=== PATIENT | male | born 1975 | race Two or more races ===

== ENCOUNTER 2022-07-29 04:14 | Emergency (ER) | payer MEDICARE, MEDICAID ==
[~2022-07-29] VITALS: Ht 175.3 cm; Wt 125.0 kg
[2022-07-29 04:33] VITALS: BP 172/81
== END 2022-07-29 08:56 | disposition left against medical advice (07) ==
LOC: EDBD 04:14 → ER 04:24
DX: R07.9 Chest pain, unspecified (principal); Z53.21 Procedure and treatment not carried out due to patient leaving prior to being seen by health care provider
CPT/HCPCS: 93005

== ENCOUNTER 2022-11-14 13:45 | Inpatient (IN) | payer MEDICARE, MEDICAID ==
[~2022-11-14] VITALS: Ht 182.9 cm; Wt 116.1 kg
[2022-11-14 14:55] LABS: Basophils # (auto) 0.1 10 ^3/uL (0-0.2); Basophils % (auto) 1.1 % (0.0-2.0); Eosinophils # (auto) 0.2 10 ^3/uL (0-0.8); Eosinophils % (auto) 2.3 % (0.0-7.0); Hematocrit 33.8 % (41.0-53.0); Hemoglobin 11.3 g/dL (13.5-17.5); Lymphocytes # (auto) 0.8 10 ^3/uL (0.4-5.4); Mean Corpuscular Hemoglobin 32.5 pg (28.0-32.0); Mean Corpuscular Hgb Conc. 33.5 g/dL (32.0-36.0); Mean Corpuscular Volume 97.1 fL (80.0-100.0); Monocytes # (auto) 0.6 10 ^3/uL (0-1.3); Monocytes % (auto) 5.8 % (0.0-12.0); Neutrophils # (auto) 9.2 10 ^3/uL (1.6-8.6); Neutrophils % (auto) 83.8 % (37.0-80.0); Red Blood Cells 3.49 10^6/uL (4.5-5.90); Red Cell Distribution Width 15.2 % (11.8-14.3); White Blood Cell 10.9 10^3/uL (4.4-10.8)
[2022-11-14 15:13] LABS: Albumin 4.2 g/dL (3.4-5.0); BUN/Creatinine Ratio 6.2; Calcium 9.2 mg/dL (8.5-10.1)
[2022-11-14 15:15] LABS: Bilirubin, Total 0.5 mg/dL (0.2-1.0); Total Protein 7.9 g/dL (6.4-8.2)
[2022-11-14 15:39] LABS: Potassium 7.3 mmol/L (3.5-5.1)
[2022-11-14] MEDS ORDERED: DEXTROSE (50%) 50ML SYRG IV ONE ×2 (15:45→18:45)
[2022-11-14] MEDS ORDERED: SODIUM ZIRCONIUM CYCL 10 GM PAK PO ONE ×2 (15:45→16:45)
[2022-11-14] MEDS ORDERED: ALBUTEROL SULF 2.5 MG/0.5ML(0.5%) NEB SOLN NEB ONE ×2 (15:45→18:45)
[2022-11-14] MEDS ORDERED: InsuLIN REG 1unit/0.01ml Soln (100units/ml) IV ONE ×2 (15:45→18:45)
[2022-11-14] MEDS ORDERED: CALCIUM GLUC 1,000mg/50ml-NS 50 ML IV ONE ×2 (15:45→18:45)
[2022-11-14] MEDS ORDERED: SODIUM BICARBONATE 8.4% INJ 50ML SYRINGE IV ONE ×2 (15:45→18:45)
[2022-11-14] MEDS ORDERED: ASPirin 325 MG TAB PO ONE (16:15)
[2022-11-14] MEDS ORDERED: SODIUM CHL 0.9% 1000 ML BAG XX ONE (16:45)
[2022-11-14] MEDS ORDERED: DOCUSATE SOD 100 MG CAP PO PRN (19:30)
[2022-11-14] MEDS ORDERED: NITROGLYCERIN 0.4 MG SL TAB SL PRN (19:30)
[2022-11-14] MEDS ORDERED: ONDANSETRON HCL 4 MG/2 ML VIAL IV PRN (19:30)
[2022-11-14] MEDS ORDERED: MORPHINE SULFATE INJ 2 MG/ml SYRG IV PRN (19:30)
[2022-11-14] MEDS ORDERED: ACETAMINOPHEN 325 MG TAB PO PRN (19:30)
[2022-11-14] MEDS ORDERED: CLON0.2T PO (19:45)
[2022-11-14] MEDS ORDERED: INSUINJ37 SC (19:45)
[2022-11-14] MEDS ORDERED: CLOP75TA70 PO (19:45)
[2022-11-14] MEDS ORDERED: ATOR40TA52 PO (19:45)
[2022-11-14] MEDS ORDERED: CITA-77 PO (19:45)
[2022-11-14] MEDS ORDERED: CARV25TA55 (19:45)
[2022-11-14] MEDS ORDERED: NIFE1TAB36 (19:45)
[2022-11-14] MEDS ORDERED: ASPI-325 PO (19:45)
[2022-11-14] MEDS ORDERED: DEXTROSE (50%) 50ML SYRG IV PRN (19:45)
[2022-11-14] MEDS ORDERED: SEVE800T (19:45)
[2022-11-14] MEDS ORDERED: diphenhdrAMINE HCL 50 MG/1 ML VL IV ONE (22:45)
[2022-11-14] MEDS: ACCU-CHEK COMFORT CURVE STRIP VI SCH (23:29)
[2022-11-14] MEDS: InsuLIN REG 1unit/0.01ml Soln (100units/ml) SC SCH (23:29)
[2022-11-14] MEDS: NIFEdipine ER 30 MG TAB PO SCH (23:29)
[2022-11-14] MEDS: HEPARIN SODIUM (PORCINE) 5000 UNITS/ML 1ML VIAL IV SCH (23:42)
[2022-11-15] MEDS: cloNIDine HCL 0.1 MG TAB PO PRN ×3 (01:21→23:12)
[2022-11-15 05:00] VITALS: BP 168/86
[2022-11-15] MEDS: diphenhdrAMINE HCL 50 MG/1 ML VL IV PRN ×3 (05:06→18:50)
[2022-11-15 05:27] LABS: Basophils # (auto) 0.1 10 ^3/uL (0-0.2); Basophils % (auto) 0.8 % (0.0-2.0); Eosinophils # (auto) 0.2 10 ^3/uL (0-0.8); Eosinophils % (auto) 3.2 % (0.0-7.0); Hematocrit 29.1 % (41.0-53.0); Hemoglobin 9.8 g/dL (13.5-17.5); Lymphocytes % (auto) 15.7 % (10.0-50.0); Mean Corpuscular Hgb Conc. 33.7 g/dL (32.0-36.0); Monocytes # (auto) 0.8 10 ^3/uL (0-1.3); Monocytes % (auto) 11.7 % (0.0-12.0); Neutrophils # (auto) 4.6 10 ^3/uL (1.6-8.6); Neutrophils % (auto) 68.6 % (37.0-80.0); Red Blood Cells 3.06 10^6/uL (4.5-5.90); Red Cell Distribution Width 15.1 % (11.8-14.3); White Blood Cell 6.7 10^3/uL (4.4-10.8)
[2022-11-15 05:40] LABS: Albumin 3.6 g/dL (3.4-5.0); Calcium 8.9 mg/dL (8.5-10.1); Potassium 4.8 mmol/L (3.5-5.1)
[2022-11-15 05:45] LABS: BUN/Creatinine Ratio 5.5; Bilirubin, Total 0.5 mg/dL (0.2-1.0); Total Protein 7.5 g/dL (6.4-8.2)
[2022-11-15] MEDS: InsuLIN REG 1unit/0.01ml Soln (100units/ml) SC SCH ×4 (06:20→21:42)
[2022-11-15] MEDS: ACCU-CHEK COMFORT CURVE STRIP VI SCH ×4 (06:20→21:42)
[2022-11-15] MEDS: HEPARIN SODIUM (PORCINE) 5000 UNITS/ML 1ML VIAL IV SCH (06:48)
[2022-11-15 09:46] VITALS: BP 131/85
[2022-11-15] MEDS: ATORVASTATIN 20 MG TAB PO SCH (10:04)
[2022-11-15] MEDS: CITALOPRAM HYDROBR 20 MG TAB PO SCH (10:04)
[2022-11-15] MEDS: ASPirin-EC 81 mg tab PO SCH (10:04)
[2022-11-15] MEDS: CLOPIDOGREL BISULFATE 75 MG TAB PO SCH (10:05)
[2022-11-15] MEDS: NIFEdipine ER 30 MG TAB PO SCH ×2 (10:05→21:30)
[2022-11-15] MEDS ORDERED: SODIUM CHL 0.9% 1000 ML BAG XX ONE (13:15)
[2022-11-15] MEDS ORDERED: THROAT LOZENGES(CEPASTAT) MT PRN (14:00)
[2022-11-15] MEDS: CLINDAMYCIN HCL 150 MG CAP PO SCH ×2 (14:45→21:29)
[2022-11-15] MEDS: HYDROcodone-ACET 5/325MG TAB PO PRN ×2 (14:46→21:30)
[2022-11-15 17:20] VITALS: BP 155/94
[2022-11-15] MEDS: PANTOPRAZOLE 40 MG/10 ML VIAL INJ IV SCH (21:31)
[2022-11-15 22:00] VITALS: BP 181/90
[2022-11-16] MEDS: HYDROcodone-ACET 5/325MG TAB PO PRN (01:44)
[2022-11-16] MEDS: diphenhdrAMINE HCL 50 MG/1 ML VL IV PRN (01:44)
[2022-11-16 05:00] VITALS: BP 175/92
[2022-11-16] MEDS: CLINDAMYCIN HCL 150 MG CAP PO SCH ×2 (05:37→13:28)
[2022-11-16 05:54] LABS: Basophils # (auto) 0.1 10 ^3/uL (0-0.2); Basophils % (auto) 1.5 % (0.0-2.0); Eosinophils # (auto) 0.2 10 ^3/uL (0-0.8); Eosinophils % (auto) 3.8 % (0.0-7.0); Hematocrit 29.6 % (41.0-53.0); Hemoglobin 10.2 g/dL (13.5-17.5); Lymphocytes % (auto) 17.8 % (10.0-50.0); Mean Corpuscular Hemoglobin 32.9 pg (28.0-32.0); Mean Corpuscular Hgb Conc. 34.3 g/dL (32.0-36.0); Mean Corpuscular Volume 95.8 fL (80.0-100.0); Monocytes # (auto) 0.9 10 ^3/uL (0-1.3); Monocytes % (auto) 15.3 % (0.0-12.0); Neutrophils # (auto) 3.6 10 ^3/uL (1.6-8.6); Neutrophils % (auto) 61.6 % (37.0-80.0); Nucleated Red Blood Cells % 0.1 %; Red Blood Cells 3.09 10^6/uL (4.5-5.90); Red Cell Distribution Width 14.9 % (11.8-14.3); White Blood Cell 5.8 10^3/uL (4.4-10.8)
[2022-11-16 05:59] LABS: BUN/Creatinine Ratio 4.9; Calcium 8.6 mg/dL (8.5-10.1); Potassium 5.2 mmol/L (3.5-5.1)
[2022-11-16] MEDS: ACCU-CHEK COMFORT CURVE STRIP VI SCH ×2 (06:29→11:30)
[2022-11-16] MEDS: InsuLIN REG 1unit/0.01ml Soln (100units/ml) SC SCH ×2 (06:30→12:22)
[2022-11-16] MEDS: PANTOPRAZOLE 40 MG/10 ML VIAL INJ IV SCH (08:57)
[2022-11-16] MEDS: NIFEdipine ER 30 MG TAB PO SCH (08:58)
[2022-11-16] MEDS: ATORVASTATIN 20 MG TAB PO SCH (08:58)
[2022-11-16] MEDS: CLOPIDOGREL BISULFATE 75 MG TAB PO SCH (08:58)
[2022-11-16] MEDS: CITALOPRAM HYDROBR 20 MG TAB PO SCH (08:58)
[2022-11-16] MEDS: ASPirin-EC 81 mg tab PO SCH (08:58)
[2022-11-16 09:00] VITALS: BP 163/97
[2022-11-16] MEDS: cloNIDine HCL 0.1 MG TAB PO PRN (11:13)
[2022-11-16] MEDS ORDERED: NIFEdipine ER 30 MG TAB PO SCH (12:00)
[2022-11-16 13:00] VITALS: BP 188/107
[2022-11-16 14:13] VITALS: BP 162/82
[2022-11-16] MEDS ORDERED: hydrALAZINE HCL 25 MG TAB PO PRN (18:00)
[2022-11-16] MEDS ORDERED: hydrALAZINE HCL 25 MG TAB PO SCH (18:00)
[2022-11-17] MEDS ORDERED: SODIUM CHL 0.9% 1000 ML BAG XX ONE (07:00)
== END 2022-11-16 15:08 | disposition home or self-care (01) | DRG 640 ==
LOC: ER 13:45 → TELE 19:34 → TELE-WESTW 11-15 02:15
PROVIDERS: ADMIT Nurse Practitioner; ATTEND Nurse Practitioner
PROC: 5A1D70Z Performance of Urinary Filtration, Intermittent, Less than 6 Hours Per Day (ICD-10-PCS; principal; 2022-11-14)
PROC: 5A1D70Z Performance of Urinary Filtration, Intermittent, Less than 6 Hours Per Day (ICD-10-PCS; 2022-11-15)
DX: E87.5 Hyperkalemia (principal); I50.33 Acute on chronic diastolic (congestive) heart failure; N18.6 End stage renal disease; I13.2 Hypertensive heart and chronic kidney disease with heart failure and with stage 5 chronic kidney disease, or end stage renal disease; K92.2 Gastrointestinal hemorrhage, unspecified; I25.10 Atherosclerotic heart disease of native coronary artery without angina pectoris; D63.1 Anemia in chronic kidney disease; E11.22 Type 2 diabetes mellitus with diabetic chronic kidney disease; F41.9 Anxiety disorder, unspecified; K21.9 Gastro-esophageal reflux disease without esophagitis; B34.9 Viral infection, unspecified; Z20.822 Contact with and (suspected) exposure to COVID-19; E86.0 Dehydration; M89.8X9 Other specified disorders of bone, unspecified site; Z83.3 Family history of diabetes mellitus; Z95.1 Presence of aortocoronary bypass graft; Z95.5 Presence of coronary angioplasty implant and graft; Z95.810 Presence of automatic (implantable) cardiac defibrillator; Z99.2 Dependence on renal dialysis; Z91.15 Patient's noncompliance with renal dialysis
CPT/HCPCS: 36415; 71045; 80048; 80053; 82962; 83880; 84132; 84484; 85025; 85379; 86803; 87081; 87426; 87804; 90935; 93005; 94640; 96365; 96366; 96375; 96376; 99291; C9113; G0378; J1815

== ENCOUNTER 2022-12-17 15:33 | Inpatient (IN) | payer MEDICARE, MEDICAID ==
[~2022-12-17] VITALS: Ht 170.2 cm; Wt 112.8 kg
[~2022-12-17 15:33] MED LIST: ASPI-325 PO; ATOR40TA52 PO; CARV25TA55; CITA-77 PO; CLON0.2T PO; CLOP75TA70 PO; INSUINJ37 SC; NIFE1TAB36; SEVE800T
[2022-12-17 16:53] LABS: Basophils # (auto) 0.1 10 ^3/uL (0-0.2); Basophils % (auto) 1.5 % (0.0-2.0); Eosinophils # (auto) 0.1 10 ^3/uL (0-0.8); Eosinophils % (auto) 1.4 % (0.0-7.0); Hemoglobin 12.3 g/dL (13.5-17.5); Lymphocytes # (auto) 1.2 10 ^3/uL (0.4-5.4); Mean Corpuscular Hemoglobin 32.4 pg (28.0-32.0); Mean Corpuscular Hgb Conc. 34.3 g/dL (32.0-36.0); Mean Corpuscular Volume 94.7 fL (80.0-100.0); Monocytes # (auto) 0.6 10 ^3/uL (0-1.3); Monocytes % (auto) 7.4 % (0.0-12.0); Neutrophils # (auto) 5.7 10 ^3/uL (1.6-8.6); Neutrophils % (auto) 73.7 % (37.0-80.0); Nucleated Red Blood Cells % 0.7 %; Red Blood Cells 3.81 10^6/uL (4.5-5.90); Red Cell Distribution Width 15.8 % (11.8-14.3); White Blood Cell 7.8 10^3/uL (4.4-10.8)
[2022-12-17 17:14] LABS: Albumin 4.3 g/dL (3.4-5.0); Calcium 9.2 mg/dL (8.5-10.1); Potassium 4.5 mmol/L (3.5-5.1)
[2022-12-17 17:17] LABS: BUN/Creatinine Ratio 5.7; Bilirubin, Total 0.4 mg/dL (0.2-1.0)
[2022-12-17] MEDS ORDERED: DEXTROSE (50%) 50ML SYRG IV PRN (21:30)
[2022-12-17] MEDS: ONDANSETRON HCL 4 MG/2 ML VIAL IV PRN (23:23)
[2022-12-17] MEDS: MORPHINE SULFATE 4 MG/ML SYR/VIAL IV PRN (23:46)
[2022-12-18] MEDS ORDERED: InsuLIN REG 1unit/0.01ml Soln (100units/ml) SC SCH
[2022-12-18] MEDS ORDERED: ACCU-CHEK COMFORT CURVE STRIP VI SCH
[2022-12-18] MEDS: hydrALAZINE HCL 20 MG/ML VL IV PRN ×4 (00:22→14:58)
[2022-12-18] MEDS: ONDANSETRON HCL 4 MG/2 ML VIAL IV PRN ×4 (06:18→20:30)
[2022-12-18] MEDS: MORPHINE SULFATE 4 MG/ML SYR/VIAL IV PRN ×4 (06:19→20:30)
[2022-12-18 08:40] LABS: Basophils # (auto) 0.1 10 ^3/uL (0-0.2); Basophils % (auto) 1.4 % (0.0-2.0); Eosinophils # (auto) 0.1 10 ^3/uL (0-0.8); Eosinophils % (auto) 1.6 % (0.0-7.0); Hematocrit 37.5 % (41.0-53.0); Hemoglobin 12.2 g/dL (13.5-17.5); Lymphocytes # (auto) 1.4 10 ^3/uL (0.4-5.4); Lymphocytes % (auto) 18.2 % (10.0-50.0); Mean Corpuscular Hemoglobin 31.3 pg (28.0-32.0); Mean Corpuscular Hgb Conc. 32.6 g/dL (32.0-36.0); Mean Corpuscular Volume 95.9 fL (80.0-100.0); Monocytes # (auto) 0.8 10 ^3/uL (0-1.3); Monocytes % (auto) 10.3 % (0.0-12.0); Neutrophils # (auto) 5.3 10 ^3/uL (1.6-8.6); Neutrophils % (auto) 68.5 % (37.0-80.0); Nucleated Red Blood Cells % 0.2 %; Red Blood Cells 3.91 10^6/uL (4.5-5.90); Red Cell Distribution Width 16.2 % (11.8-14.3); White Blood Cell 7.8 10^3/uL (4.4-10.8)
[2022-12-18 09:23] LABS: Albumin 3.9 g/dL (3.4-5.0); BUN/Creatinine Ratio 6.1; Bilirubin, Total 0.4 mg/dL (0.2-1.0); Calcium 8.6 mg/dL (8.5-10.1); Total Protein 7.5 g/dL (6.4-8.2)
[2022-12-18] MEDS: CITALOPRAM HYDROBR 20 MG TAB PO SCH (09:42)
[2022-12-18] MEDS: ASPirin-EC 81 mg tab PO SCH (09:42)
[2022-12-18] MEDS: cloNIDine HCL 0.1 MG TAB PO SCH ×2 (09:42→22:16)
[2022-12-18] MEDS: CLOPIDOGREL BISULFATE 75 MG TAB PO SCH (09:43)
[2022-12-18 09:46] LABS: Potassium 6.2 mmol/L (3.5-5.1)
[2022-12-18] MEDS ORDERED: PATIENTS OWN MEDICATION (Clonidine Hydrochloride (Clonidine Hcl) 1 TAB) PO SCH (10:00)
[2022-12-18] MEDS ORDERED: CLOPIDOGREL BISULFATE PO SCH (10:00)
[2022-12-18] MEDS ORDERED: PATIENTS OWN MEDICATION (Atorvastatin Calcium 1 TAB) PO SCH (10:00)
[2022-12-18] MEDS ORDERED: LABETALOL HCL 5 MG/ML 4ML SYRINGE IV ONE (13:30)
[2022-12-18] MEDS: LORazepam 2MG/ML-1ML VIAL IV PRN (15:43)
[2022-12-18] MEDS ORDERED: ALBUTEROL SULF 2.5 MG/0.5ML(0.5%) NEB SOLN NEB ONE (17:00)
[2022-12-18] MEDS ORDERED: DEXTROSE (50%) 50ML SYRG IV ONE (17:00)
[2022-12-18] MEDS ORDERED: CALCIUM GLUC 1,000mg/50ml-NS 50 ML IV ONE (17:00)
[2022-12-18] MEDS ORDERED: InsuLIN REG 1unit/0.01ml Soln (100units/ml) IV ONE (17:00)
[2022-12-18] MEDS ORDERED: SODIUM ZIRCONIUM CYCL 10 GM PAK PO ONE (17:00)
[2022-12-18] MEDS ORDERED: SODIUM BICARBONATE 8.4% INJ 50ML SYRINGE IV ONE (17:00)
[2022-12-18] MEDS: diphenhdrAMINE HCL 25 MG CAP PO PRN (22:15)
[2022-12-18] MEDS: ATORVASTATIN 20 MG TAB PO SCH (22:17)
[2022-12-18] MEDS: HEPARIN SODIUM (PORCINE) 5000 UNITS/ML 1ML VIAL SC SCH (22:17)
[2022-12-19] MEDS: LORazepam 2MG/ML-1ML VIAL IV PRN ×3 (01:33→21:15)
[2022-12-19] MEDS: LABETALOL HCL 5 MG/ML 4ML SYRINGE IV PRN ×2 (01:37→18:41)
[2022-12-19] MEDS: hydrALAZINE HCL 20 MG/ML VL IV PRN (03:39)
[2022-12-19] MEDS ORDERED: SODIUM CHL 0.9% 1000 ML BAG XX ONE (07:00)
[2022-12-19] MEDS: cloNIDine HCL 0.1 MG TAB PO SCH (10:28)
[2022-12-19] MEDS: PANTOPRAZOLE 40 MG TAB PO SCH (10:28)
[2022-12-19] MEDS: CLOPIDOGREL BISULFATE 75 MG TAB PO SCH (10:28)
[2022-12-19] MEDS: CITALOPRAM HYDROBR 20 MG TAB PO SCH (10:28)
[2022-12-19] MEDS: MORPHINE SULFATE 4 MG/ML SYR/VIAL IV PRN ×3 (10:30→23:03)
[2022-12-19] MEDS: ONDANSETRON HCL 4 MG/2 ML VIAL IV PRN ×2 (10:31→17:59)
[2022-12-19] MEDS: ASPirin-EC 81 mg tab PO SCH (10:31)
[2022-12-19] MEDS: HEPARIN SODIUM (PORCINE) 5000 UNITS/ML 1ML VIAL SC SCH ×2 (10:45→23:02)
[2022-12-19] MEDS ORDERED: cloNIDine 0.3 mg/24hr 7DAY PATCH TD ONE (12:00)
[2022-12-19 12:04] LABS: Calcium 9.1 mg/dL (8.5-10.1); Potassium 5.1 mmol/L (3.5-5.1)
[2022-12-19] MEDS: NIFEdipine ER 30 MG TAB PO SCH ×2 (13:33→22:54)
[2022-12-19] MEDS: CARVEDILOL 3.125 MG TAB PO SCH ×2 (13:33→22:54)
[2022-12-19 15:13] VITALS: BP 149/86
[2022-12-19] MEDS ORDERED: TRAM100C PO (15:54)
[2022-12-19] MEDS ORDERED: HYDR50TA15 PO (15:54)
[2022-12-19] MEDS ORDERED: PANT40T PO (15:54)
[2022-12-19] MEDS ORDERED: FERR1TAB17 PO (15:54)
[2022-12-19] MEDS: diphenhdrAMINE HCL 25 MG CAP PO PRN (19:20)
[2022-12-19 22:00] VITALS: BP 166/51
[2022-12-19] MEDS: ATORVASTATIN 20 MG TAB PO SCH (22:52)
[2022-12-20] MEDS: diphenhdrAMINE HCL 25 MG CAP PO PRN ×3 (03:14→15:08)
[2022-12-20] MEDS: MORPHINE SULFATE 4 MG/ML SYR/VIAL IV PRN ×2 (03:15→15:09)
[2022-12-20 05:00] VITALS: BP 150/61
[2022-12-20] MEDS: LORazepam 2MG/ML-1ML VIAL IV PRN ×2 (05:49→16:48)
[2022-12-20 06:39] LABS: Basophils # (auto) 0.1 10 ^3/uL (0-0.2); Basophils % (auto) 1.4 % (0.0-2.0); Eosinophils # (auto) 0.2 10 ^3/uL (0-0.8); Eosinophils % (auto) 2.3 % (0.0-7.0); Hemoglobin 12.4 g/dL (13.5-17.5); Lymphocytes # (auto) 1.6 10 ^3/uL (0.4-5.4); Lymphocytes % (auto) 21.5 % (10.0-50.0); Mean Corpuscular Hemoglobin 32.1 pg (28.0-32.0); Mean Corpuscular Hgb Conc. 33.6 g/dL (32.0-36.0); Mean Corpuscular Volume 95.5 fL (80.0-100.0); Monocytes # (auto) 0.8 10 ^3/uL (0-1.3); Monocytes % (auto) 10.4 % (0.0-12.0); Neutrophils # (auto) 4.9 10 ^3/uL (1.6-8.6); Neutrophils % (auto) 64.4 % (37.0-80.0); Nucleated Red Blood Cells % 0.2 %; Red Blood Cells 3.87 10^6/uL (4.5-5.90); Red Cell Distribution Width 16.2 % (11.8-14.3); White Blood Cell 7.6 10^3/uL (4.4-10.8)
[2022-12-20 06:55] LABS: BUN/Creatinine Ratio 5.3; Calcium 8.9 mg/dL (8.5-10.1); Potassium 5.3 mmol/L (3.5-5.1)
[2022-12-20 09:00] VITALS: BP 158/75
[2022-12-20] MEDS: ASPirin-EC 81 mg tab PO SCH (09:07)
[2022-12-20] MEDS: PANTOPRAZOLE 40 MG TAB PO SCH (09:08)
[2022-12-20] MEDS: ONDANSETRON HCL 4 MG/2 ML VIAL IV PRN ×2 (09:11→15:08)
[2022-12-20] MEDS: HEPARIN SODIUM (PORCINE) 5000 UNITS/ML 1ML VIAL SC SCH ×2 (09:22→21:39)
[2022-12-20] MEDS: CITALOPRAM HYDROBR 20 MG TAB PO SCH (10:00)
[2022-12-20] MEDS: CLOPIDOGREL BISULFATE 75 MG TAB PO SCH (10:00)
[2022-12-20 13:00] VITALS: BP 194/96
[2022-12-20] MEDS ORDERED: SODIUM CHL 0.9% 1000 ML BAG XX ONE (14:00)
[2022-12-20 17:00] VITALS: BP 167/101
[2022-12-20] MEDS: SEVELAMER 800 MG TAB PO SCH (18:20)
[2022-12-20] MEDS: diphenhdrAMINE HCL 50 MG/1 ML VL IV PRN (18:33)
[2022-12-20] MEDS: ATORVASTATIN 20 MG TAB PO SCH (21:32)
[2022-12-20] MEDS: NIFEdipine ER 30 MG TAB PO SCH (21:33)
[2022-12-20] MEDS: CARVEDILOL 3.125 MG TAB PO SCH (21:40)
[2022-12-20 22:00] VITALS: BP 164/73
[2022-12-21] MEDS: LORazepam 2MG/ML-1ML VIAL IV PRN ×2 (00:07→18:52)
[2022-12-21] MEDS: hydrALAZINE HCL 20 MG/ML VL IV PRN (00:07)
[2022-12-21] MEDS: MORPHINE SULFATE 4 MG/ML SYR/VIAL IV PRN ×3 (03:08→16:29)
[2022-12-21] MEDS: diphenhdrAMINE HCL 50 MG/1 ML VL IV PRN (04:03)
[2022-12-21 05:00] VITALS: BP 172/74
[2022-12-21] MEDS: LABETALOL HCL 5 MG/ML 4ML SYRINGE IV PRN (05:26)
[2022-12-21] MEDS ORDERED: SODIUM CHL 0.9% 1000 ML BAG XX ONE (07:00)
[2022-12-21] MEDS: SEVELAMER 800 MG TAB PO SCH ×3 (08:24→18:00)
[2022-12-21] MEDS: CLOPIDOGREL BISULFATE 75 MG TAB PO SCH (09:29)
[2022-12-21] MEDS: CARVEDILOL 3.125 MG TAB PO SCH ×2 (09:29→21:43)
[2022-12-21] MEDS: PANTOPRAZOLE 40 MG TAB PO SCH (09:30)
[2022-12-21] MEDS: CITALOPRAM HYDROBR 20 MG TAB PO SCH (09:30)
[2022-12-21] MEDS: ASPirin-EC 81 mg tab PO SCH (09:30)
[2022-12-21] MEDS: NIFEdipine ER 30 MG TAB PO SCH ×2 (09:33→21:45)
[2022-12-21] MEDS: ONDANSETRON HCL 4 MG/2 ML VIAL IV PRN (09:34)
[2022-12-21] MEDS: HEPARIN SODIUM (PORCINE) 5000 UNITS/ML 1ML VIAL SC SCH ×2 (09:38→21:50)
[2022-12-21 09:40] VITALS: BP 164/52
[2022-12-21 10:43] LABS: BUN/Creatinine Ratio 4.9; Calcium 8.5 mg/dL (8.5-10.1)
[2022-12-21 10:45] LABS: Potassium 5.6 mmol/L (3.5-5.1)
[2022-12-21] MEDS ORDERED: SODIUM ZIRCONIUM CYCL 10 GM PAK PO ONE (11:30)
[2022-12-21 14:29] VITALS: BP 129/67
[2022-12-21 17:36] VITALS: BP 120/77
[2022-12-21 20:00] VITALS: BP 130/58
[2022-12-21] MEDS: ATORVASTATIN 20 MG TAB PO SCH (21:44)
[2022-12-21 22:23] VITALS: BP 130/58
[2022-12-22] MEDS: diphenhdrAMINE HCL 50 MG/1 ML VL IV PRN (03:07)
[2022-12-22 05:13] VITALS: BP 137/50
[2022-12-22] MEDS: SEVELAMER 800 MG TAB PO SCH ×2 (08:00→12:00)
[2022-12-22 08:22] LABS: BUN/Creatinine Ratio 4.7; Calcium 8.7 mg/dL (8.5-10.1); Potassium 5.5 mmol/L (3.5-5.1)
[2022-12-22 09:00] VITALS: BP 156/74
[2022-12-22] MEDS: CARVEDILOL 3.125 MG TAB PO SCH (10:00)
[2022-12-22] MEDS: CITALOPRAM HYDROBR 20 MG TAB PO SCH (10:00)
[2022-12-22] MEDS: NIFEdipine ER 30 MG TAB PO SCH (10:00)
[2022-12-22] MEDS: HEPARIN SODIUM (PORCINE) 5000 UNITS/ML 1ML VIAL SC SCH (10:00)
[2022-12-22] MEDS: CLOPIDOGREL BISULFATE 75 MG TAB PO SCH (10:00)
[2022-12-22] MEDS: ASPirin-EC 81 mg tab PO SCH (10:00)
[2022-12-22] MEDS: PANTOPRAZOLE 40 MG TAB PO SCH (10:00)
[2022-12-22] MEDS ORDERED: InsuLIN REG 1unit/0.01ml Soln (100units/ml) IV ONE (15:15)
[2022-12-22] MEDS ORDERED: CALCIUM GLUC 1,000mg/50ml-NS 50 ML IV ONE (15:15)
[2022-12-22] MEDS ORDERED: DEXTROSE (50%) 50ML SYRG IV ONE (15:15)
[2022-12-22] MEDS ORDERED: ALBUTEROL SULF 2.5 MG/0.5ML(0.5%) NEB SOLN NEB ONE (15:15)
[2022-12-22] MEDS ORDERED: NIFE1TAB31 PO (15:49)
[2022-12-22] MEDS ORDERED: CAR3125T PO (15:49)
[2022-12-22 16:29] VITALS: BP 156/74
[2022-12-22 17:00] VITALS: BP 137/61
== END 2022-12-22 17:30 | disposition home or self-care (01) | DRG 291 ==
LOC: EDBD 15:33 → ER 15:33 → TELE 21:27 → TELE-E-ADS 12-19 14:05 → TELE-WESTW 12-19 20:10
PROVIDERS: ADMIT Internal Medicine; ATTEND Internal Medicine
PROC: 5A1D70Z Performance of Urinary Filtration, Intermittent, Less than 6 Hours Per Day (ICD-10-PCS; principal; 2022-12-19)
PROC: 5A1D70Z Performance of Urinary Filtration, Intermittent, Less than 6 Hours Per Day (ICD-10-PCS; 2022-12-20)
PROC: 5A1D70Z Performance of Urinary Filtration, Intermittent, Less than 6 Hours Per Day (ICD-10-PCS; 2022-12-22)
DX: I13.2 Hypertensive heart and chronic kidney disease with heart failure and with stage 5 chronic kidney disease, or end stage renal disease (principal); I50.33 Acute on chronic diastolic (congestive) heart failure; N18.6 End stage renal disease; E87.1 Hypo-osmolality and hyponatremia; E11.22 Type 2 diabetes mellitus with diabetic chronic kidney disease; I25.10 Atherosclerotic heart disease of native coronary artery without angina pectoris; Z20.822 Contact with and (suspected) exposure to COVID-19; E11.65 Type 2 diabetes mellitus with hyperglycemia; E66.9 Obesity, unspecified; E87.5 Hyperkalemia; F17.200 Nicotine dependence, unspecified, uncomplicated; I16.0 Hypertensive urgency; Z79.4 Long term (current) use of insulin; Z95.1 Presence of aortocoronary bypass graft; Z82.49 Family history of ischemic heart disease and other diseases of the circulatory system; Z83.3 Family history of diabetes mellitus; Z95.810 Presence of automatic (implantable) cardiac defibrillator; Z99.2 Dependence on renal dialysis; Z98.61 Coronary angioplasty status
CPT/HCPCS: 36415; 71045; 80048; 80053; 82962; 83880; 84132; 84484; 85025; 87426; 90935; 93005; 94640; 94644; 96374; 96375; G0378; J1815; J2405; J3490